=== PATIENT | female | born 1990 | race Caucasian/White ===

== ENCOUNTER 2016-09-20 20:41 | Emergency (ER) | payer OTHER ==
[~2016-09-20 20:41] MED LIST: ACETAMINOPHEN PR; ACYCLOVIR PO; ALBUTEROL17 GM INH; AMOXICILLIN PO; BENZONATATE PO; CLARITIN10 M1 PO; FLEXERIL10 MG PO; FLONASE 0.05% N16 G1; FLOXIN10 ML AU; IBUPROFEN PO; MACROBID100 M1 PO; MOTRIN600 M1 PO; MOTRIN600 M2 PO; NO MEDICATIONS; ORUDIS75 M1 PO; PEN-VEE K PO; PHENERGAN PO; PRENATAL MULITV1 TAB PO; PRENATAL1 TA1; ROBAXIN500 MG PO; ROBITUSSIN-DM118 ML PO; TESSALON200 MG PO; TYLENOL #3 PO; TYLENOL325 M1 PO; ZITHROMAX PO; ZOFRAN ODT4 MG PO; ZOFRANODT PO; ZYRTEC-D TABLE1 EACH PO
== END 2016-09-20 22:36 | disposition home or self-care (01) ==
LOC: SED 20:41
DX: G43.909 Migraine, unspecified, not intractable, without status migrainosus (principal); R05 Cough; F17.210 Nicotine dependence, cigarettes, uncomplicated
CPT/HCPCS: 36415; 94640; 96361; 96374; 96375; 99284

== ENCOUNTER 2017-02-01 12:58 | Emergency (ER) | payer OTHER ==
[~2017-02-01] VITALS: Ht 165.1 cm; Wt 79.4 kg
== END 2017-02-01 15:14 | disposition home or self-care (01) ==
LOC: SED 12:58
DX: J02.0 Streptococcal pharyngitis (principal); G43.909 Migraine, unspecified, not intractable, without status migrainosus; F17.210 Nicotine dependence, cigarettes, uncomplicated
CPT/HCPCS: 87880; 96360; 96372; 99283; J0561

== ENCOUNTER 2017-02-02 06:46 | Emergency (ER) | payer OTHER | END 2017-02-02 07:41 | disposition home or self-care (01) | LOC: SED 06:46 | DX: J03.00 Acute streptococcal tonsillitis, unspecified (principal); F17.210 Nicotine dependence, cigarettes, uncomplicated; G43.909 Migraine, unspecified, not intractable, without status migrainosus | CPT/HCPCS: 99282 ==